=== PATIENT | male | born 1975 | race African-American/Black ===

== ENCOUNTER 2016-03-30 11:35 | Inpatient (IN) | payer OTHER ==
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
[2016-03-30] MEDS ORDERED: ACETAMINOPHEN 325 MG TABLET (FP) PO PRN (13:49)
[2016-03-30] MEDS ORDERED: P-EPHED 60MG/TRIPROLIDI 2.5MG TABLET PO PRN (13:49)
[2016-03-30] MEDS ORDERED: LOPERAMIDE HCL 2 MG CAPSULE PO PRN (13:49)
[2016-03-30] MEDS ORDERED: MAGNESIUM CITRATE 300 ML BOTTLE PO PRN (13:49)
[2016-03-30] MEDS ORDERED: MENTHOL/PHENOL 1 EACH UD MM PRN (13:49)
[2016-03-30] MEDS ORDERED: NICOTINE POLACRILEX 2 MG GUM BUC PRN (13:49)
[2016-03-30] MEDS ORDERED: IBUPROFEN 400 MG TABLET (FP) PO PRN (13:49)
[2016-03-30] MEDS ORDERED: guaiFENesin/D-METHORPHAN HB 10 ML UNIT-DOSE CUPS PO PRN (13:49)
[2016-03-30] MEDS ORDERED: hydrOXYzine PAMOATE 50 MG CAPSULE (FP) PO PRN (13:49)
[2016-03-30] MEDS ORDERED: MAGNESIUM HYDROX 2400MG/30ML ORAL SUSPENSION 30 ML CUP PO PRN (13:49)
[2016-03-30] MEDS ORDERED: COLLOIDAL OATMEAL 1 BAR EACH TP PRN (13:53)
[2016-03-30 14:09] VITALS: BMI 23.0
[2016-03-30] MEDS ORDERED: TUBERCULIN PPD 5 TU/0.1ML VIAL ID ONE (17:52)
[2016-03-30] MEDS: BACITRACIN 0.9 GM PACKET TP SCH ×2 (17:57→22:01)
[2016-03-30] MEDS: NICOTINE 14 MG/24 HOURS TOPICAL PATCH TD SCH (17:58)
[2016-03-30] MEDS: THIAMINE HCL 100 MG TABLET (FP) PO SCH (22:02)
[2016-03-30] MEDS: risperiDONE 0.5 MG TABLET (FP) PO SCH (22:08)
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
[2016-03-31 10:03] LABS: URINE APPEARANCE TURBID; URINE BILIRUBIN NEGATIVE (NEGATIVE); URINE BLOOD NEGATIVE (NEGATIVE); URINE COLOR YELLOW; URINE GLUCOSE (UA) NEGATIVE (NEGATIVE); URINE KETONE TRACE (NEGATIVE); URINE LEUK ESTERASE NEGATIVE (NEGATIVE); URINE NITRITE NEGATIVE (NEGATIVE); URINE UROBILINOGEN 4.0 E.U/dl E.U./dl (0.2-1.0)
[2016-03-31 10:07] LABS: MCH 29.5 pg (25.7-33.7); MCHC 32.4 g/dl (32.0-35.9); MEAN PLT VOLUME 8.6 fl (7.5-11.1); PLATELET COUNT 217 K/MM3 (134-434); RDW 15.2 % (11.9-15.9); WHITE BLOOD COUNT 2.8 K/mm3 (4.0-10.0)
[2016-03-31 10:12] LABS: URINE PROTEIN 2+ (NEGATIVE)
[2016-03-31 10:18] LABS: CALCIUM OXALATE CRYSTALS MANY /hpf (NONE SEEN); URINE MUCUS MANY; URINE WBC 1 /hpf (3-5)
[2016-03-31 10:22] LABS: ALBUMIN 3.7 g/dl (3.4-5.0); ALK PHOS 81 U/L (45-117); ANION GAP 8 (8-16); BILIRUBIN,TOTAL 0.4 mg/dL (0.2-1.0); CALCIUM 9.1 mg/dL (8.5-10.1); CO2 34 mmol/L (21-32); CREATININE 1.2 mg/dL (0.7-1.3); GLUCOSE,RANDOM 92 mg/dL (74-106); SGOT/AST 64 U/L (15-37); SGPT/ALT 67 U/L (12-78); TOT PROT 8.6 g/dl (6.4-8.2)
[2016-03-31 10:30] LABS: SICKLE CELL SCREEN NEGATIVE (NEGATIVE)
[2016-03-31 10:53] LABS: MICROCYTOSIS 1+; PLATELET COMMENT2 NO CLUMPING NOTED; PLATELET ESTIMATE ADEQUATE (NORMAL)
[2016-03-31] MEDS: PRENATAL VITAMINS W/ FOLIC ACID TABLET (FP) PO SCH (10:57)
[2016-03-31] MEDS: SULFAMETHOXAZOLE/TRIMETHOPRIM 800MG/160MG D.S. TABLET PO SCH (10:57)
[2016-03-31] MEDS: FLUCONAZOLE 100 MG TABLET (UD) PO SCH (10:58)
[2016-03-31] MEDS: NICOTINE 14 MG/24 HOURS TOPICAL PATCH TD SCH (11:01)
[2016-03-31] MEDS: BACITRACIN 0.9 GM PACKET TP SCH ×2 (11:04→21:56)
--- NOTE | 2016-03-31 11:12 | EKG ---
Test Reason : Blood Pressure : / mmHG Vent. Rate : 071 BPM Atrial Rate : 071 BPM P-R Int : 136 ms QRS Dur : 090 ms QT Int : 426 ms P-R-T Axes : 072 079 046 degrees QTc Int : 462 ms NORMAL SINUS RHYTHM NORMAL ECG NO PREVIOUS ECGS AVAILABLE Confirmed by DEZ ABBOTT MD ([id number]) on 03/31/2016 11:12:21 AM Referred By: Confirmed By:DEZ ABBOTT MD
[2016-03-31] MEDS: THIAMINE HCL 100 MG TABLET (FP) PO SCH (21:56)
[2016-03-31] MEDS: traZODone HCL 50 MG TABLET (FP) PO PRN (21:57)
[2016-03-31] MEDS: DIVALPROEX SODIUM 500 MG TABLET E.C. PO SCH (21:57)
[2016-03-31] MEDS: risperiDONE 0.5 MG TABLET (FP) PO SCH (21:58)
[2016-04-01] MEDS: PRENATAL VITAMINS W/ FOLIC ACID TABLET (FP) PO SCH (10:01)
[2016-04-01] MEDS: FLUCONAZOLE 100 MG TABLET (UD) PO SCH (10:01)
[2016-04-01] MEDS: SULFAMETHOXAZOLE/TRIMETHOPRIM 800MG/160MG D.S. TABLET PO SCH (10:02)
[2016-04-01] MEDS: BACITRACIN 0.9 GM PACKET TP SCH ×2 (10:02→21:48)
[2016-04-01] MEDS: NICOTINE 14 MG/24 HOURS TOPICAL PATCH TD SCH (10:02)
[2016-04-01] MEDS: POTASSIUM CHLORIDE TABS 20 MEQ TABLET.ER (FP) PO SCH ×2 (11:38→21:48)
[2016-04-01] MEDS: risperiDONE 0.5 MG TABLET (FP) PO SCH (21:46)
[2016-04-01] MEDS: traZODone HCL 50 MG TABLET (FP) PO PRN (21:47)
[2016-04-01] MEDS: DIVALPROEX SODIUM 500 MG TABLET E.C. PO SCH (21:47)
[2016-04-01] MEDS: THIAMINE HCL 100 MG TABLET (FP) PO SCH (21:48)
[2016-04-02] MEDS: PRENATAL VITAMINS W/ FOLIC ACID TABLET (FP) PO SCH (10:01)
[2016-04-02] MEDS: NICOTINE 14 MG/24 HOURS TOPICAL PATCH TD SCH (10:02)
[2016-04-02] MEDS: FLUCONAZOLE 100 MG TABLET (UD) PO SCH (10:02)
[2016-04-02] MEDS: SULFAMETHOXAZOLE/TRIMETHOPRIM 800MG/160MG D.S. TABLET PO SCH (10:02)
[2016-04-02] MEDS: BACITRACIN 0.9 GM PACKET TP SCH ×2 (10:02→21:18)
[2016-04-02] MEDS: POTASSIUM CHLORIDE TABS 20 MEQ TABLET.ER (FP) PO SCH ×2 (10:02→21:18)
[2016-04-02] MEDS: traZODone HCL 50 MG TABLET (FP) PO PRN (21:17)
[2016-04-02] MEDS: DIVALPROEX SODIUM 500 MG TABLET E.C. PO SCH (21:17)
[2016-04-02] MEDS: risperiDONE 0.5 MG TABLET (FP) PO SCH (21:17)
[2016-04-02] MEDS: diphenhydrAMINE HCL 50 MG CAPSULE PO PRN (21:18)
[2016-04-02] MEDS: THIAMINE HCL 100 MG TABLET (FP) PO SCH (21:18)
[2016-04-03] MEDS: FLUCONAZOLE 100 MG TABLET (UD) PO SCH (10:14)
[2016-04-03] MEDS: POTASSIUM CHLORIDE TABS 20 MEQ TABLET.ER (FP) PO SCH ×2 (10:14→21:29)
[2016-04-03] MEDS: PRENATAL VITAMINS W/ FOLIC ACID TABLET (FP) PO SCH (10:14)
[2016-04-03] MEDS: SULFAMETHOXAZOLE/TRIMETHOPRIM 800MG/160MG D.S. TABLET PO SCH (10:14)
[2016-04-03] MEDS: BACITRACIN 0.9 GM PACKET TP SCH ×2 (10:14→21:28)
[2016-04-03] MEDS: NICOTINE 14 MG/24 HOURS TOPICAL PATCH TD SCH (10:16)
[2016-04-03] MEDS: NEOMYCIN/POLYMYXN/HC OTIC SUSPENSION 10 ML BOTTLE AD SCH (17:48)
[2016-04-03] MEDS: THIAMINE HCL 100 MG TABLET (FP) PO SCH (21:28)
[2016-04-03] MEDS: diphenhydrAMINE HCL 50 MG CAPSULE PO PRN (21:29)
[2016-04-03] MEDS: DIVALPROEX SODIUM 500 MG TABLET E.C. PO SCH (21:30)
[2016-04-03] MEDS: traZODone HCL 50 MG TABLET (FP) PO PRN (21:30)
[2016-04-03] MEDS: risperiDONE 0.5 MG TABLET (FP) PO SCH (21:30)
[2016-04-04] MEDS: NEOMYCIN/POLYMYXN/HC OTIC SUSPENSION 10 ML BOTTLE AD SCH ×5 (00:19→23:53)
[2016-04-04] MEDS: BACITRACIN 0.9 GM PACKET TP SCH ×2 (10:03→22:04)
[2016-04-04] MEDS: PRENATAL VITAMINS W/ FOLIC ACID TABLET (FP) PO SCH (10:03)
[2016-04-04] MEDS: POTASSIUM CHLORIDE TABS 20 MEQ TABLET.ER (FP) PO SCH ×2 (10:04→22:07)
[2016-04-04] MEDS: FLUCONAZOLE 100 MG TABLET (UD) PO SCH (10:04)
[2016-04-04] MEDS: SULFAMETHOXAZOLE/TRIMETHOPRIM 800MG/160MG D.S. TABLET PO SCH (10:04)
[2016-04-04] MEDS: NICOTINE 14 MG/24 HOURS TOPICAL PATCH TD SCH (10:05)
[2016-04-04] MEDS: MAG HYDROX/AL HYDROX/SIMETH 30 ML UNIT-DOSE CUP PO PRN (19:56)
[2016-04-04] MEDS: THIAMINE HCL 100 MG TABLET (FP) PO SCH (22:07)
[2016-04-04] MEDS: risperiDONE 0.5 MG TABLET (FP) PO SCH (22:07)
[2016-04-04] MEDS: DIVALPROEX SODIUM 500 MG TABLET E.C. PO SCH (22:07)
[2016-04-05] MEDS: NEOMYCIN/POLYMYXN/HC OTIC SUSPENSION 10 ML BOTTLE AD SCH ×3 (06:57→17:09)
[2016-04-05] MEDS: SULFAMETHOXAZOLE/TRIMETHOPRIM 800MG/160MG D.S. TABLET PO SCH (10:08)
[2016-04-05] MEDS: FLUCONAZOLE 100 MG TABLET (UD) PO SCH (10:08)
[2016-04-05] MEDS: BACITRACIN 0.9 GM PACKET TP SCH ×2 (10:10→21:41)
[2016-04-05] MEDS: NICOTINE 14 MG/24 HOURS TOPICAL PATCH TD SCH (10:11)
[2016-04-05] MEDS: PRENATAL VITAMINS W/ FOLIC ACID TABLET (FP) PO SCH (10:11)
[2016-04-05] MEDS: POTASSIUM CHLORIDE TABS 20 MEQ TABLET.ER (FP) PO SCH (10:14)
[2016-04-05] MEDS: traZODone HCL 50 MG TABLET (FP) PO PRN (21:39)
[2016-04-05] MEDS: risperiDONE 0.5 MG TABLET (FP) PO SCH (21:40)
[2016-04-05] MEDS: DIVALPROEX SODIUM 500 MG TABLET E.C. PO SCH (21:40)
[2016-04-05] MEDS: THIAMINE HCL 100 MG TABLET (FP) PO SCH (21:41)
[2016-04-06] MEDS: NEOMYCIN/POLYMYXN/HC OTIC SUSPENSION 10 ML BOTTLE AD SCH ×5 (02:16→23:09)
[2016-04-06 10:11] LABS: CALCIUM 9.1 mg/dL (8.5-10.1); CREATININE 1.4 mg/dL (0.7-1.3)
[2016-04-06] MEDS: SULFAMETHOXAZOLE/TRIMETHOPRIM 800MG/160MG D.S. TABLET PO SCH (10:20)
[2016-04-06] MEDS: PRENATAL VITAMINS W/ FOLIC ACID TABLET (FP) PO SCH (10:20)
[2016-04-06] MEDS: BACITRACIN 0.9 GM PACKET TP SCH ×2 (10:20→21:20)
[2016-04-06] MEDS: FLUCONAZOLE 100 MG TABLET (UD) PO SCH (10:20)
[2016-04-06] MEDS: NICOTINE 14 MG/24 HOURS TOPICAL PATCH TD SCH (10:22)
[2016-04-06 19:43] LABS: URINE APPEARANCE CLEAR; URINE BILIRUBIN NEGATIVE (NEGATIVE); URINE BLOOD NEGATIVE (NEGATIVE); URINE COLOR LTYELLOW; URINE GLUCOSE (UA) NEGATIVE (NEGATIVE); URINE KETONE NEGATIVE (NEGATIVE); URINE LEUK ESTERASE NEGATIVE (NEGATIVE); URINE NITRITE NEGATIVE (NEGATIVE); URINE PROTEIN NEGATIVE (NEGATIVE); URINE UROBILINOGEN NEGATIVE E.U./dl (0.2-1.0)
[2016-04-06] MEDS: DIVALPROEX SODIUM 500 MG TABLET E.C. PO SCH (21:18)
[2016-04-06] MEDS: risperiDONE 0.5 MG TABLET (FP) PO SCH (21:18)
[2016-04-06] MEDS: THIAMINE HCL 100 MG TABLET (FP) PO SCH (21:19)
[2016-04-06] MEDS: traZODone HCL 50 MG TABLET (FP) PO PRN (21:19)
[2016-04-06] MEDS: diphenhydrAMINE HCL 50 MG CAPSULE PO PRN (21:20)
[2016-04-06] MEDS: MAG HYDROX/AL HYDROX/SIMETH 30 ML UNIT-DOSE CUP PO PRN (22:19)
[2016-04-07] MEDS: NEOMYCIN/POLYMYXN/HC OTIC SUSPENSION 10 ML BOTTLE AD SCH ×2 (05:59→12:06)
[2016-04-07 10:18] LABS: CALCIUM 9.1 mg/dL (8.5-10.1); CREATININE 1.4 mg/dL (0.7-1.3)
[2016-04-07] MEDS: BACITRACIN 0.9 GM PACKET TP SCH (10:35)
[2016-04-07] MEDS: PRENATAL VITAMINS W/ FOLIC ACID TABLET (FP) PO SCH (10:35)
[2016-04-07] MEDS: FLUCONAZOLE 100 MG TABLET (UD) PO SCH (10:35)
[2016-04-07] MEDS: SULFAMETHOXAZOLE/TRIMETHOPRIM 800MG/160MG D.S. TABLET PO SCH (10:35)
[2016-04-07] MEDS: NICOTINE 14 MG/24 HOURS TOPICAL PATCH TD SCH (10:36)
[2016-04-07] MEDS: MAG HYDROX/AL HYDROX/SIMETH 30 ML UNIT-DOSE CUP PO PRN (16:50)
--- NOTE | 2016-04-07 19:08 | PN ---
Psychiatric Progress Note Vital Signs: Vital Signs Period Temp Pulse Resp BP Sys/Guardado Pulse Ox Last 24 Hr 98.3 F 78 18-18 116/68 Date of Session: 04/07/16 Chief Complaint:: Follow up visit (early discharge) HPI: Case of a 40 y/o AA male admitted to [address] on 04/07 to address alcohol dependence,marijuana dependence,methamphetamine dependence co- morbid with bipolar disorder.Mr Jennings has decided to shorten his treatment and leave this program.Met with the patient for clarification of his reasons.He is encouraged to stay but he declines to reconsider. ROS: Unremarkable.Patient is cogitively intact.Medical issues were addressed.Normal vitals. Current Medications: Active Medications Generic Name Dose Route Start Last Admin Trade Name Freq PRN Reason Stop Dose Admin Acetaminophen 650 mg 03/30/16 13:49 Tylenol - PO Q4H PRN PAIN Al Hydroxide/Mg Hydroxide 30 ml 03/30/16 13:49 04/07/16 16:50 Mylanta Oral Suspension - PO 30 ml Q6H PRN Administration DYSPEPSIA Bacitracin 1.8 gm 03/30/16 14:00 04/07/16 10:35 Bacitracin - TP 1.8 gm BID JOSÉ MIGUEL Administration Colloidal Oatmeal 1 applic 03/30/16 13:53 04/05/16 12:42 Aveeno Soap - TP 1 applic DAILY PRN Administration HYGEINE Diphenhydramine HCl 50 mg 03/30/16 13:49 04/06/16 21:20 Benadryl - PO 50 mg HSMR1 PRN Administration INSOMNIA Divalproex Sodium 1,000 mg 03/31/16 22:00 04/06/16 21:18 Depakote - PO 1,000 mg HS JOSÉ MIGUEL Administration Eucalyptus/Menthol/Phenol/Sorbitol 1 each 03/30/16 13:49 Cepastat Lozenge - MM Q4H PRN SORE THROAT Fluconazole 100 mg 03/31/16 10:00 04/07/16 10:35 Diflucan - PO 04/13/16 10:01 100 mg DAILY JOSÉ MIGUEL Administration Guaifenesin 10 ml 03/30/16 13:49 Robitussin Dm - PO Q6H PRN COUGH Hydroxyzine Pamoate 50 mg 03/30/16 13:49 Vistaril - PO Q4H PRN AGITATION Ibuprofen 400 mg 03/30/16 13:49 Motrin - PO Q6H PRN SEVERE PAIN Loperamide HCl 4 mg 03/30/16 13:49 Imodium - PO Q6H PRN DIARRHEA Magnesium Citrate 300 ml 03/30/16 13:49 Citroma - PO Q48H PRN CONSTIPATION Magnesium Hydroxide 30 ml 03/30/16 13:49 Milk Of Magnesia - PO DAILY PRN CONSTIPATION Neomycin/Polymyxin/Hydrocortisone 4 drop 04/03/16 18:00 04/07/16 12:06 Cortisporin Otic Suspenstion - AD 4 drop Q6HPO JOSÉ MIGUEL Administration Nicotine 14 mg 03/30/16 15:33 04/07/16 10:36 Nicoderm Patch - TD 14 mg DAILY JOSÉ MIGUEL Administration Nicotine Polacrilex 2 mg 03/30/16 13:49 03/31/16 11:02 Nicorette Gum - BUC 2 mg Q2H PRN Administration NICOTINE REPLACEMENT RX Non-Formulary Medication 1 each 03/31/16 10:00 04/07/16 10:35 Elviteg/Melissa/Emtric/Tenofo Ala [Genvoya Tablet] PO 1 each DAILY JOSÉ MIGUEL Administration Multivit/Folic Acid/Iron 1 tab 03/31/16 10:00 04/07/16 10:35 Vitamins (Sjr) - PO 1 tab DAILY JOSÉ MIGUEL Administration Pseudoephedrine/Triprolidine 1 combo 03/30/16 13:49 Actifed - PO TID PRN NASAL CONGESTION Risperidone 1 mg 03/30/16 22:00 04/06/16 21:18 Risperdal - PO 1 mg HS JOSÉ MIGUEL Administration Thiamine HCl 100 mg 03/30/16 22:00 04/06/16 21:19 Vitamin B1 - PO 100 mg HS JOSÉ MIGUEL Administration Trazodone HCl 50 mg 03/31/16 20:00 04/06/16 21:19 Desyrel - PO 50 mg HS PRN Administration INSOMNIA Trimethoprim/Sulfamethoxazole 1 each 03/31/16 10:00 04/07/16 10:35 Bactrim Ds - PO 1 each DAILY JOSÉ MIGUEL Administration Medication(s) Change(s): No changes.Patient reports favorable response to his current regimen of medications.No adverse effects.Script for risperdal (1 mg po hs # 30 tablets) is sent to [facility] in the [place].Mr Jennings declines scripts for depakote and trazodone due to adequate supply still available ( bottles seen).Side effects/benefits discussed with the patient.Made aware of the risk of priapism (trazodone) and advised to stop that drug/seek immediate medical attention if occurrence of painful/prolonged erection.Patient is comfortable with continuation of his medications after discharge from this service. Current Side Effect: No Lab tests ordered: No Lab tests reviewed: Yes (noted sub-therapeutic valproic acd level =3.30 ) Provider note:: Patient has made the decision to terminate treatment at [address]He has addressed his issues of substance dependence and bipolar disorder.Short term goals have been reached according to patient.Mr Jennings will continue to address his issues,on an outpatient basis,at [facility] where his medical/psychiatric services are rendered.Medical issues were addressed.Seen by the Nurse's Practitioner and medically cleared.Mr Jennings comments that his stay at [facility] has been helpful but it did not fulfill all his expectations.Besides,the proximity of some peers ( acquaintances from the community) brought him a great deal of discomfort.Patient reckoned that his needs will be best served by transitioning to [facility] care.He indicates that he will invest serious effort into maintenance of sobriety.He also pledges to incorporate in his daily routine some principles learned during therapy sessions in this service.Mr Jennings reports a heightened awareness of the negative consequences of substance abuse.He indicates his willingness to adhere to his aftercare arrangements (medical + psychiatric) and modify behaviors that predispose to relapses.He is noted as logical,coherent and goal-directed.No clinical evidence of psychosis or jann.Mr Jennings has consistently denied suicidal or homicidal ideation,intent or plan.Mental status is stable.See detailed report.Patient has the capacity to make reasoned decisions pertinent to his welfare.His decision to shorten his treatment bears some merit.He still understands the importance of care as evidenced by his plan to resume his follow up at [facility].Patient is stable for discharge.Discussed with the Multidisciplinary team. Total face to face time:: 55 Mental Status Exam - Mental Status Exam Alert and Oriented to: Time, Place, Person Cognitive Function: Good Patient Appearance: Well Groomed Mood: Hopeful, Euthymic Affect: Appropriate, Normal Range Patient Behavior: Appropriate, Cooperative (well-mannered) Speech Pattern: Clear, Appropriate Voice Loudness: Normal Thought Process: Goal Oriented Thought Disorder: Not Present Hallucinations: Denies Suicidal Ideation: Denies Homicidal Ideation: Denies Insight/Judgement: Fair Sleep: Well Appetite: Good Muscle strength/Tone: Normal Gait/Station: Normal Psychiatric Treatment Plan - Problem List (1) Bipolar 1 disorder Current Visit: Yes (2) Alcohol dependence Current Visit: Yes (3) Nicotine dependence Current Visit: Yes (4) Cannabis dependence, uncomplicated Current Visit: Yes (5) Methamphetamine dependence Current Visit: Yes (6) GERD (gastroesophageal reflux disease) Current Visit: Yes (7) Pseudofolliculitis of the tam Current Visit: Yes (8) Tinea pedis Current Visit: Yes Qualifiers: Laterality: bilateral Qualified Code(s): B35.3 - Tinea pedis (9) HIV (human immunodeficiency virus infection) Current Visit: Yes (10) History of insomnia Current Visit: Yes
[2016-04-07 19:44] VITALS: BP 127/76; PULSE 97; TEMP 98.4
--- NOTE | 2016-04-07 20:55 | PN ---
ANIYA Progress Note Note: patient requests to be discharged today, agrees follow up care as per arranged by the counselor face to face with the patient at the nurse station, bp120/76, ap97, temp98.7 resp20, alert oriented x 3, speech clearly ambulate steady gait, no acute distress
== END 2016-04-07 19:42 | disposition home or self-care (01) | DRG 772 ==
LOC: YASAS 11:35 → Y3W 12:19
PROVIDERS: ADMIT Psychiatry & Neurology Psychiatry; ATTEND Psychiatry & Neurology Psychiatry
PROC: HZ42ZZZ Group Counseling for Substance Abuse Treatment, Cognitive-Behavioral (ICD-10-PCS; principal; 2016-04-07)
DX: F10.20 Alcohol dependence, uncomplicated (principal); F15.20 Other stimulant dependence, uncomplicated; F12.20 Cannabis dependence, uncomplicated; F31.89 Other bipolar disorder; G47.00 Insomnia, unspecified; Z21 Asymptomatic human immunodeficiency virus [HIV] infection status; K21.9 Gastro-esophageal reflux disease without esophagitis; B35.3 Tinea pedis; L73.1 Pseudofolliculitis barbae
CPT/HCPCS: 36415; 80048; 80053; 80164; 81003; 81015; 85027; 85660; 86593; 86780; 93005; 93010